=== PATIENT | male | born 1995 | race Caucasian/White ===

== ENCOUNTER 2022-09-13 07:14 | Outpatient (CLI) | payer OTHER, SELFPAY ==
--- NOTE | 2022-09-13 12:58 | DI.RAD_ITS ---
Exam(s) XR CHEST 2V PA LATERAL EXAM: XR CHEST 2V PA LATERAL CLINICAL HISTORY: CHEST PAIN ON BREATHING. TECHNIQUE: 2D digital imaging was performed. COMPARISON: No exams were available for comparison FINDINGS: 2 views: Heart size is normal. The mediastinum is not widened. Lungs are clear. No infiltrates nor pleural effusions. IMPRESSION: No acute pulmonary findings. DATA REPOSITORY: RADIATION DOSE DELIVERED:
== END 2022-09-13 07:34 ==
LOC: DI 09-16 07:15
PROVIDERS: Visit Provider Nurse Practitioner Family
DX: R07.89 Other chest pain (principal)
CPT/HCPCS: 71046

== ENCOUNTER 2022-09-13 12:23 | Outpatient (REF) | payer OTHER, SELFPAY ==
--- OUTSIDE RECORDS SUMMARY | 2022-09-13 12:28 | XMS_ITS ---
:[address] [facility] Address [address] [place] [address] Care Team Providers Name Role Phone catAra Henning Unavailable Unavailable PROBLEMS Unknown Problems ALLERGIES No Known Allergies ENCOUNTERS IMMUNIZATIONS No Known Immunizations SOCIAL HISTORY REASON FOR REFERRAL FUNCTIONAL STATUS PLAN OF CARE VITAL SIGNS MEDICATIONS PROCEDURES RESULTS REASON FOR VISIT Insurance Providers
--- NOTE | 2022-09-13 13:06 | DI.VRAD_ITS ---
PROCEDURE INFORMATION: Exam: XR Chest Exam date and time: 09/13/2022 12:55 PM Age: 27 years old Clinical indication: Pain; On breathing TECHNIQUE: Imaging protocol: Radiologic exam of the chest. Views: 2 views. COMPARISON: No relevant prior studies available. FINDINGS: Lungs: Unremarkable. No consolidation. Pleural spaces: Unremarkable. No pleural effusion. No pneumothorax. Heart/Mediastinum: Unremarkable. No cardiomegaly. Bones/joints: Unremarkable. IMPRESSION: No acute findings. Dictated and Authenticated by: Nicole Brewster MD. Ordering:COLIN PEREZ MD
[2022-09-13 13:41] LABS: D-Dimer 882 ng/mlFEU (<500)
== END 2022-09-13 12:24 | disposition home or self-care (01) ==
LOC: LBN 12:23
PROVIDERS: Visit Provider Nurse Practitioner Family
DX: R07.1 Chest pain on breathing (principal)
CPT/HCPCS: 71046; 85379

== ENCOUNTER 2022-09-13 14:47 | Emergency (ER) | payer OTHER, SELFPAY ==
[2022-09-13 14:56] VITALS: BP 116/72; PULSE 99; RESP 26; TEMP 36.2; O2SAT 99
--- NOTE | 2022-09-13 15:00 | DI.CT_ITS ---
Exam(s) CT CHEST PE CTA EXAM: CT CHEST PE CTA CLINICAL HISTORY: chest pain left, elev ddimer. TECHNIQUE: Imaging Protocol: CT angiography of the chest was performed using pulmonary embolus patricia col. Multi planar reconstructions were performed. CONTRAST MATERIAL: Intravenous: Omnipaque 350 Contrast volume: 100 cc COMPARISON: No exams were available for comparison FINDINGS: CHEST: PULMONARY ARTERIES: There are no intraluminal filling defects to suggest acute pulmonary emboli. LUNGS: There are no infiltrates nor evidence of pulmonary infarction.. There are no pleural effusions . MEDIASTINUM: There is no hilar nor mediastinal adenopathy. Visualized thyroid unremarkable. CARDIAC: Heart size is upper normal. There is no pericardial effusion.Caliber of the thoracic aorta is within normal limits. There is no significant shift of the interventricular septum. PARTIALLY VISUALIZED UPPERMOST ABDOMEN: No obvious findings OSSEOUS: No significant osseous lesions.. IMPRESSION: 1. No evidence of acute pulmonary emboli. No evidence of pulmonary infarction.No infiltrates. No om inous pulmonary nodules. 2. No evidence of aortic dissection. No pericardial effusion. 3. No pleural effusions. RADIATION DOSE DELIVERED: 853.48mGy.cm Total DLP DATA REPOSITORY: All CT scans at this facility are submitted to the National Radiology Data Registry (NRDR) Dose Index Registry (DIR) with the [employer] (A[employer]). RADIATION OPTIMIZATION: All CT scans at this facility use at least one of these dose optimization te chniques: automated exposure control; mA and/or kV adjustment per patient size (includes targeted exa ms where dose is matched to clinical indication); or iterative reconstruction.
--- NOTE | 2022-09-13 15:00 | RT.EKG_ITS ---
APPROVED REPORT Exam: Resting ECG Reason for Exam: chest pain Patient Location: E HR:94 bpm ECG Measurements Heart Rate 94 AXIS CO 160 P 65 QRSd 81 QRS 50 QT 321 T 5 QTc 401 Conclusion Sinus rhythm...normal P axis, V-rate 60- 99
[2022-09-13 15:19] LABS: Abs Immature Grans 0.02 10^3/uL (0.0-0.06); Absolute Basophil Count 0.02 10^3/uL (0.0-0.2); Absolute Eosinophil Count 0.08 10^3/uL (0.0-0.7); Absolute Lymphocyte Count 1.94 10^3/uL (1.2-3.4); Absolute Monocyte Count 1.03 10^3/uL (0.1-0.8); Absolute Neutrophil Count 6.62 10^3/uL (1.2-6.7); Basophils % 0.2; Eosinophils % 0.8; HCT 40.6 % (40.0-50.0); HGB 13.6 g/dL (13.5-17.5); Immature Grans % 0.2; MCH 30.6 pg (27.0-33.0); MCHC 33.5 % (32.0-36.0); MCV 91 fL (80-95); MPV 10.9 fL (8.0-11.0); Monocytes % 10.6; Neutrophils % 68.2; Platelet Count 288 10^3/uL (130-400); RBC 4.44 10^6/uL (4.36-5.78); RDW 11.9 % (11.8-14.1); RDW-SD 40.1 fL; WBC 9.71 10^3/uL (4.4-10.8)
--- NOTE | 2022-09-13 15:33 | ED.GENADUL_ITS ---
Discharge Plan Disposition Patient Disposition: Home Condition: Stable Discharge Details Clinical Impression: Chest pain, Acute costochondritis Primary Care Provider: None,None ED Provider: Ti Perez Home Meds and New Rx's Prescriptions: Continued clonidine HCl 0.1 mg tablet 3 - 4 tab PO QHS PRN (Reason: Sleep) Label Comments: TAKE 3 TO 4 TABLETS BY MOUTH AT BEDTIME gabapentin 600 mg tablet 1 tab PO TID Label Comments: TAKE 1 TABLET BY MOUTH THREE TIMES DAILY buspirone 10 mg tablet 1 tab PO TID Label Comments: TAKE 1 TABLET BY MOUTH THREE TIMES DAILY gabapentin 300 mg capsule 2 cap PO TID Label Comments: TAKE 2 CAPSULES BY MOUTH THREE TIMES DAILY escitalopram oxalate 20 mg tablet 2 tab PO DAILY Label Comments: TAKE 2 TABLETS BY MOUTH DAILY bupropion HCl 300 mg tablet extended release 24 hr 1 tab PO QAM Label Comments: TAKE 1 TABLET BY MOUTH EVERY MORNING bupropion HCl 150 mg tablet extended release 24 hr 1 tab PO DAILY Label Comments: TAKE 1 TABLET BY MOUTH DAILY Discharge Instructions Instructions: Chest Pain (ED) Additional Instructions: Please take ibuprofen over the counter. Take 600mg by mouth every 6 hours as needed for pain. Please contact your primary care physician to arrange follow-up. Return to the ER immediately for any worsening or new concerning symptoms. Medical Decision Making [id number]??27-year-old male here with 2 days of left pleuritic chest pain with associated shortness of breath. Patient was seen at [facility] and had negative chest x-ray and elevated D-dimer. He was sent here for further evaluation. Screening EKG was reviewed and interpreted by me: Please see report, sinus rhythm 94 bpm, normal axis, no STEMI. Consider acute pulmonary embolism. D-dimer is elevated. I will proceed to CT of the chest. -- Labs reviewed and nondiagnostic. No leukocytosis. No anemia. Normal troponin. CT of the chest was reviewed and interpreted by radiology: No acute findings. Pulmonary arteries noted to be normal with no pulmonary emboli. Lungs noted to be unremarkable with no consolidation and no masses no pneumothorax or pleural effusion. Suspect musculoskeletal likely costochondritis. I have recommended supportive care and have patient follow-up with PCP. HPI General Mode of arrival: ambulatory . Date/Time Provider Initiated Documentation: 09/13/22 14:54 . Limitations to Documentation: no limitations . Information obtained by: patient . HPI Narrative: 27-year-old male presents with chief complaint of chest pain. Pain started 2 days ago and has persisted. Patient notes he woke up with the pain. Pain is moderate. Pain is present and worsens with deep inspiration. Pain localized to left chest that is sharp in nature. Patient denies associated trauma. He does have associated shortness of breath over the past couple days. No leg swelling or calf pain he did travel to [place] about a month ago. No recent surgery. He did have COVID about 2 months ago. Patient was seen [facility] earlier today and had negative chest x-ray and elevated D-dimer. Related Data Home Medications Medication Instructions Recorded Confirmed bupropion HCl 150 mg 24 hr tablet, 1 tab PO DAILY 09/13/22 09/13/22 extended release bupropion HCl 300 mg 24 hr tablet, 1 tab PO QAM 09/13/22 09/13/22 extended release buspirone 10 mg tablet 1 tab PO TID 09/13/22 09/13/22 clonidine HCl 0.1 mg tablet 3 - 4 tab PO QHS PRN Sleep 09/13/22 09/13/22 escitalopram oxalate 20 mg tablet 2 tab PO DAILY 09/13/22 09/13/22 gabapentin 300 mg capsule 2 cap PO TID 09/13/22 09/13/22 gabapentin 600 mg tablet 1 tab PO TID 09/13/22 09/13/22 Allergies Allergy/AdvReac Type Severity Reaction Status Date / Time No Known Allergies Allergy Unverified 09/13/22 15:17 General Stated Complaint: GenMedical JUDAH: 3 Review of Systems All systems reviewed & are unremarkable except as noted in HPI and below Constitutional Constitutional: Denies fever(s) Cardiovascular Cardiovascular: Reports chest pain and Reports dyspnea Respiratory Respiratory: Reports dyspnea PFSH All Active Problems (Updated 09/13/22 @ 16:53 by Ti Perez MD) Chest pain (Acute) Acute costochondritis (Acute) Social History Smoking/Tobacco Use Status: Current every day Tobacco Type: e-cigarettes Smoking risk assessment performed?: Yes Alcohol Intake: current Alcohol Intake frequency: a few times a week Drug use: Never Substance use type: does not use Do you feel safe at home: Yes Do you feel safe in your relationship?: Yes Exam Const General: cooperative and no acute distress HENMT Mouth: moist mucous membranes Eyes Conjunctivae: normal conjunctivae Sclera: normal sclerae Neck Neck: trachea midline and supple Resp Auscultation: clear to auscultation bilaterally, no rales, no rhonchi and no wheezes Cardio Rate: tachycardic Rhythm: regular rhythm Heart Sounds: no click, no gallops, no murmurs and no rubs GI Palpation: soft, not firm, no guarding, no masses, not rigid and nontender Skin General skin exam: no rashes or lesions noted Neuro General: patient alert, patient awake, patient oriented x3 and tone normal Extrem General: no calf tenderness and no edema Psych Appearance: grossly normal Mental Status: mental status grossly normal Speech and Movement: speech and movement normal Course Vital Signs Vital signs: Vital Signs Temperature 36.2 C L 09/13/22 14:56 Pulse 99 H 09/13/22 14:56 Respiratory Rate 26 H 09/13/22 14:56 Blood Pressure 116/72 09/13/22 14:56 Pulse Oximetry 99 09/13/22 14:56 Temperature 36.2 C L 09/13/22 14:56 Temperature Source Temporal Artery Scan 09/13/22 14:56 Pulse 99 H 09/13/22 14:56 Respiratory Rate 26 H 09/13/22 14:56 Respiratory Effort 09/13/22 15:07 Respiratory Depth Normal 09/13/22 15:07 Respiratory Pattern Normal 09/13/22 15:07 Blood Pressure 116/72 09/13/22 14:56 Blood Pressure Position Sitting 09/13/22 14:56 Pulse Oximetry 99 09/13/22 14:56 Oxygen Delivery Method Room Air 09/13/22 14:56 Oxygen Flow Rate 0 09/13/22 14:56 Pain Level 5 09/13/22 14:56 Lab/Test Results Lab/Test Results: Laboratory Tests Range/Units 09/13/22 15:13 WBC (4.4-10.8) 10^3/uL 9.71 RBC (4.36-5.78) 10^6/uL 4.44 Hgb (13.5-17.5) g/dL 13.6 Hct (40.0-50.0) % 40.6 MCV (80-95) fL 91 MCH (27.0-33.0) pg 30.6 MCHC (32.0-36.0) % 33.5 RDW (11.8-14.1) % 11.9 Plt Count (130-400) 10^3/uL 288 MPV (8.0-11.0) fL 10.9 Immature Gran % 0.2 Neutrophils % 68.2 Lymphocytes % 20.0 Monocytes % 10.6 Eosinophils % 0.8 Basophils % 0.2 Nucleated RBC % (0.0-0.3) % 0.0 Absolute Neutrophils (1.2-6.7) 10^3/uL 6.62 Absolute Lymphocytes (1.2-3.4) 10^3/uL 1.94 Absolute Monocytes (0.1-0.8) 10^3/uL 1.03 H Absolute Eosinophils (0.0-0.7) 10^3/uL 0.08 Absolute Basophils (0.0-0.2) 10^3/uL 0.02 PAWSS Have you Been Recently Intoxicated or Drunk Within the Last 30 days?: Yes Have you Ever Experienced Previous Episodes of Alcohol Withdrawal?: No Have you ever Experienced Withdrawal Seizures?: No Have you ever Experienced Delirium Tremens(DT)s?: No Have you ever undergone Alcohol Rehabilitation Treatment (i.e, inpt ot outpatient treatment programs)?: No Have you ever Experienced Blackouts?: No Have you ever Combined Alcohol with other Downers within the last 90 days?: No Have you ever Combined Alcohol with any other Substance of Abuse during the last 90 days?: No Positive Blood Alcohol level on Presentation? [PCS.BAL]: No Evidence of Increased Autonomic Activity (i.e. HR>120, tremor, sweating, agitation, nausea)?: No Result: 1
[2022-09-13 15:38] LABS: ALT 46 U/L (16-63); AST 26 U/L (15-37); Albumin 4.2 g/dL (3.4-5.0); Alkaline Phosphatase 96 U/L (46-116); Anion Gap 5.5 mmol/L (3-11); BUN 15 mg/dL (7-18); Bilirubin, Total 0.6 mg/dL (0.2-1.0); CO2 30.5 mmol/L (21.0-32.0); CREATININE 1.2 mg/dL (0.70-1.30); Calcium 9.3 mg/dL (8.5-10.1); Chloride 103 mmol/L (98-107); Glucose 103 mg/dL (74-106); Magnesium 2.2 mg/dL (1.8-2.4); Potassium 4.2 mmol/L (3.5-5.1); Sodium 139 mmol/L (136-145); Total Protein 7.6 g/dL (6.4-8.2); Troponin I < 50 ng/L (<or=60)
--- NOTE | 2022-09-13 16:37 | DI.VRAD_ITS ---
PROCEDURE INFORMATION: Exam: CTA Chest With Contrast Exam date and time: 09/13/2022 3:45 PM Age: 27 years old Clinical indication: Pain; Chest pressure TECHNIQUE: Imaging protocol: Computed tomographic angiography of the chest with contrast. 3D rendering (Not supervised by radiologist): MIP and/or 3D reconstructed images were created by the technologist. Contrast material: OMNIPAQUE; Contrast volume: 125 ml; Contrast route: INTRAVENOUS (IV); COMPARISON: CR XR CHEST 2V PA LATERAL 13/09/2022 12:55 FINDINGS: Pulmonary arteries: Normal. No pulmonary emboli. Aorta: Unremarkable. No aortic aneurysm. No aortic dissection. Lungs: Unremarkable. No consolidation. No masses. Pleural spaces: Unremarkable. No pneumothorax. No pleural effusion. Heart: Unremarkable. No cardiomegaly. No pericardial effusion. Lymph nodes: Unremarkable. No enlarged lymph nodes. Bones/joints: Unremarkable. No acute fracture. Soft tissues: Unremarkable. IMPRESSION: No acute findings. Dictated and Authenticated by: Maikel Lara MD. Ordering:ELIZABETH Luke MD
[2022-09-13] MEDS: Lactated Ringers 500 ML IV (16:40)
[2022-09-13] MEDS: Acetaminophen 325 MG TAB 650 MG PO (17:01)
== END 2022-09-13 17:01 | disposition home or self-care (01) ==
PROVIDERS: Emergency Provider Student in an Organized Health Care Education/Training Program
DX: M94.0 Chondrocostal junction syndrome [Tietze] (principal); R79.1 Abnormal coagulation profile; R00.0 Tachycardia, unspecified; Z86.16 Personal history of COVID-19
CPT/HCPCS: 71275; 80053; 93005; 96360; 99285; 83735; 84484; 85025; 93010